=== PATIENT | male | born 1970 | race Caucasian/White ===

== ENCOUNTER 2021-10-15 09:40 | Day surgery (SDC) | payer BC ==
[2021-10-15] MEDS ORDERED: Lactated Ringers 1,000 ML IV SCH ×2 (10:45→15:45)
--- NOTE | 2021-10-15 10:50 | PCM.PREANE ---
Preanesthetic Assessment - Procedure Proposed Procedure: Colonoscopy and EGD - Anesthesia/Transfusion/Family Hx Anesthesia History: Prior Anesthesia Without Reaction Family History of Anesthesia Reaction: No Transfusion History: No Prior Transfusion(s) - Review of Systems General: No Symptoms Pulmonary: No Symptoms, Other (Quit smoking 1995) Cardiovascular: No Symptoms Gastrointestinal: No Symptoms, Other (GERD well controlled) Neurological: No Symptoms Other: Reports: None (ETOH History with no consumption since 1988) - Physical Assessment NPO Status Date: 10/15/21 NPO Status Time: 00:00 Vital Signs: Last Vital Signs Temp 36.2 C 10/15/21 10:22 Pulse 66 10/15/21 10:22 Resp 16 10/15/21 10:22 BP 136/77 10/15/21 10:22 Pulse Ox 98 10/15/21 10:22 Height: 1.78 m Weight: 92.986 kg ASA Class: 2 Mental Status: Alert & Oriented x3 Airway Class: Mallampati = 2 Dentition: Reports: Normal Dentition Thyro-Mental Finger Breadths: 3 Mouth Opening Finger Breadths: 2 (Potential difficult airway) ROM/Head Extension: Full Lungs: Clear to Auscultation, Normal Respiratory Effort Cardiovascular: Regular Rate, Regular Rhythm - Allergies Allergies/Adverse Reactions: Allergies Allergy/AdvReac Type Severity Reaction Status Date / Time No Known Allergies Allergy Verified 10/10/21 09:33 - Blood Blood Available: No Product(s) Available: None - Anesthesia Plan Pre-Op Medication Ordered: None - Acknowledgements Anesthesia Type Planned: General Anesthesia Pt an Appropriate Candidate for the Planned Anesthesia: Yes Alternatives and Risks of Anesthesia Discussed w Pt/Guardian: Yes Pt/Guardian Understands and Agrees with Anesthesia Plan: Yes PreAnesthesia Questionnaire Other HEENT History: wears glasses, has 2 dental implants Cardiovascular History: Reports: None Respiratory History: Reports: None Gastrointestinal History: Reports: Other (See Below) Other Gastrointestinal History: intermittent abd pain Genitourinary History: Reports: None Musculoskeletal History: Reports: None Neurological History: Reports: None Psychiatric History: Reports: Addiction Other Psychiatric History: alcohol free since 1988 Endocrine/Metabolic History: Reports: None Hematologic History: Reports: None Immunologic History: Reports: None Oncologic (Cancer) History: Reports: None Dermatologic History: Reports: Other (See Below) Other Dermatologic History: rash to left upper back - Past Surgical History Head Surgeries/Procedures: Reports: None HEENT Surgical History: Reports: None Cardiovascular Surgical History: Reports: None Respiratory Surgical History: Reports: None GI Surgical History: Reports: Colonoscopy Male Surgical History: Reports: Other (See Below) Other Male Surgeries/Procedures: repair of left testicular torsion Endocrine Surgical History: Reports: None Neurological Surgical History: Reports: None Musculoskeletal Surgical History: Other Musculoskeletal Surgeries/Procedures:: excision of lipoma to back in 1997, & abd in 2019 Oncologic Surgical History: Reports: None Dermatological Surgical History: Reports: None - SUBSTANCE USE Tobacco Use Status *Q: Former Tobacco User Tobacco Use Within Last Twelve Months: No - HOME MEDS Home Medications: Home Meds Cholecalciferol (Vitamin D3) [Vitamin D3] 1 tab PO DAILY 10/10/21 [History] Fish Oil/Alsey-3 Fatty Acids [Fish Oil 1,000 MG] 1 tab PO DAILY 10/10/21 [History] Glucosam/Chond/Collagen/Hyalur [Glucosamine Chondroitin] 1 tab PO DAILY 10/10/21 [History] - CURRENT (IN HOUSE) MEDS Current Meds: Current Medications Lactated Ringer's (Ringers, Lactated) 1,000 mls @ 125 mls/hr IV ASDIRECTED ROBERT
[2021-10-15] MEDS ORDERED: Ondansetron 4 MG/2 ML SDV IVPUSH ONE (10:52)
[2021-10-15] MEDS ORDERED: Glycopyrrolate 0.2 MG/ML SDV ONE (11:29)
[2021-10-15] MEDS ORDERED: Lidocaine 2% 5 ML SDV ONE (11:29)
[2021-10-15] MEDS ORDERED: Propofol 200 MG/20 ML SDV ONE (11:29)
[2021-10-15] MEDS ORDERED: Midazolam 1 MG/ML 2 ML SDV ONE (11:29)
--- NOTE | 2021-10-15 13:47 | PCM.OPNOTE ---
- General Post-Op/Procedure Note Operative Procedure(s): EGD with biopsies. Colonoscopy with polypectomy Findings: min/mild gastritis Colon polyp ascending colon, small dictation number [id number] Pre Op Diagnosis: Epigastric pain/bloating. Screening colonoscopy Post-Op Diagnosis: min/mild gastritis. Colon polyp ascending colon, small Anesthesia Technique: MAC Primary Surgeon: Daniel Lopez Complications: None Condition: Good
--- NOTE | 2021-10-15 13:48 | PCM.POSTAN ---
POST ANESTHESIA ASSESSMENT - MENTAL STATUS Mental Status: Alert, Oriented - VITAL SIGNS Vital Signs: Last Vital Signs Temp 97.2 F 10/15/21 10:22 Pulse 66 10/15/21 10:22 Resp 16 10/15/21 10:22 BP 136/77 10/15/21 10:22 Pulse Ox 98 10/15/21 10:22 - RESPIRATORY Respiratory Status: Respiratory Rate WNL, Airway Patent, O2 Saturation Stable - CARDIOVASCULAR CV Status: Pulse Rate WNL, Blood Pressure Stable - GASTROINTESTINAL GI Status: No Symptoms - POST OP HYDRATION Hydration Status: Adequate & Stable
--- NOTE | 2021-10-15 13:59 | PCM48HPAN ---
Post Anesthesia Note - EVALUATION WITHIN 48HRS OF ANESTHETIC Vital Signs in Normal Range: Yes Patient Participated in Evaluation: Yes Respiratory Function Stable: Yes Airway Patent: Yes Cardiovascular Function Stable: Yes Hydration Status Stable: Yes Pain Control Satisfactory: Yes Nausea and Vomiting Control Satisfactory: Yes Mental Status Recovered: Yes Vital Signs: Last Vital Signs Temp 99.3 F 10/15/21 13:45 Pulse 64 10/15/21 13:55 Resp 8 L 10/15/21 13:55 BP 106/62 10/15/21 13:55 Pulse Ox 96 10/15/21 13:55
--- NOTE | 2021-10-15 15:44 | OR ---
SURGEON: TIARRA STEWART MD DATE OF PROCEDURE: 10/15/2021 PREOPERATIVE DIAGNOSES: 1. Mild epigastric pain and bloating. 2. Screening colonoscopy. POSTOPERATIVE DIAGNOSES: 1. Mild gastritis. 2. Colon polyp. PROCEDURES PERFORMED: 1. Esophagogastroduodenoscopy with biopsy. 2. Colonoscopy with cold biopsy polypectomy. PRIMARY SURGEON: Tiarra Stewart MD ANESTHESIA: General. EXTENT OF THE COLONOSCOPY: To the cecum. EXTENT OF THE EGD: To the duodenum. BOWEL PREP: Very good. LIMITATIONS: None. REASON FOR PROCEDURE: Patient is a pleasant 51-year-old gentleman who last had a colonoscopy and EGD in 2007. He says his colonoscopy was normal, had some mild gastritis. Patient says for the last year, he has had intermittent epigastric and left abdominal discomfort that he describes as pressure and bloating feeling. He did start omeprazole. He says this has greatly improved his discomfort. PROCEDURE IN DETAIL: Physical examination was performed. The major risks and benefits associated with the procedure were explained to the patient in detail. The patient verbalized understanding and agreement of the same. The patient was then connected to the appropriate monitoring devices. EKG, pulse, pulse oximetry, blood pressure, and capnography were monitored throughout the entire procedure. Continuous oxygen and sedation were provided by the anesthesiologist. The patient was placed in left lateral decubitus position. Sedation was began. After adequate sedation was achieved, an upper endoscope was advanced under direct visualization without difficulty in the upper GI tract. The mucosa of the esophagus, GE junction, stomach, pylorus, and duodenum were inspected. Duodenum appeared normal. Scope was brought into the stomach. Both retro and antegrade views of the stomach were done. He had maybe some mild gastritis, more in the antrum area. Biopsies of the antrum and pylorus were done to check for H pylori. Scope was brought back to the stomach and some random biopsies of the body and the fundus of the stomach were done. Scope was brought up to the GE junction. GE junction was about 40 cm from incisors. The Z-line appeared intact. Scope was brought back into the stomach. Stomach was desufflated. Scope was brought through the esophagus. Esophagus appeared normal. Scope was completely removed and this part of the procedure terminated. Now, a rectal exam was done. No rectal masses or polyps were felt. Now, a well- lubricated Olympus colonoscope was inserted into the rectum and advanced under direct visualization to the level of the cecum. The cecum was identified by both visual and anatomic landmarks. Photographs were taken of the cecal cap. The terminal ileum was also viewed. Scope was then slowly withdrawn in a somewhat circular fashion looking at the color, texture, anatomy, and integrity of the mucosa from the cecum to the anal canal. The patient had some light liquid stool. This was suctioned and irrigated out for great look at the mucosa. Patient had a small almost hyperplastic looking polyp in the ascending colon just past the ileocecal valve. This was removed with cold biopsy polypectomy. There was good hemostasis. Scope was continued to be withdrawn. Again, no other polyps or lesions were seen. The scope was retroflexed in the rectum. Scope was then completely removed and the procedure was terminated. ENDOSCOPIC DIAGNOSES: 1. Some minimal to mild gastritis. 2. Small polyp in the ascending colon. RECOMMENDATIONS: Followup colonoscopy will depend on pathology, but most likely will need one in five years. Patient should follow up in the clinic to go over his EGD. TRENTON HASKINS /[id number]
== END 2021-10-15 14:30 | disposition home or self-care (01) ==
LOC: MW.SDS 09:40
PROVIDERS: ATTEND Surgery
DX: Z12.11 Encounter for screening for malignant neoplasm of colon (principal); D12.2 Benign neoplasm of ascending colon; K29.70 Gastritis, unspecified, without bleeding; R10.13 Epigastric pain; Z79.899 Other long term (current) drug therapy; R14.0 Abdominal distension (gaseous); Z98.890 Other specified postprocedural states; Z87.891 Personal history of nicotine dependence
CPT/HCPCS: 43239; 45380; J2250; J2704; J3490; J7120; 00813

== ENCOUNTER 2023-05-03 07:47 | Day surgery (SDC) | payer BC ==
[2023-05-03] MEDS ORDERED: Sodium Chloride 0.9% 10 ML Syringe FLUSH PRN (07:58)
[2023-05-03] MEDS ORDERED: Sodium Chloride 0.9% 1,000 ML IV ONE (07:58)
[2023-05-03] MEDS ORDERED: Ondansetron 4 MG/2 ML SDV IVPUSH ONE (07:58)
[2023-05-03] MEDS ORDERED: Sodium Chloride 0.9% 2.5 ML Syringe FLUSH PRN (07:58)
[2023-05-03] MEDS ORDERED: Morphine 4 MG/ML Syringe IM ONE (07:59)
[2023-05-03] MEDS ORDERED: Naloxone 0.4 MG/ML SDV IVPUSH PRN (07:59)
[2023-05-03] MEDS ORDERED: Morphine 2 MG/ML SYRINGE IVPUSH ONE (08:05)
[2023-05-03 08:39] LABS: BASOPHILS PERCENT AUTO 0.1 % (0.0-1.5); HEMATOCRIT 44.4 % (38.0-50.0); HEMOGLOBIN 15.8 g/dL (13.0-17.0); LYMPHOCYTES ABSOLUTE AUTO 1.9 K/uL (0.6-2.4); LYMPHOCYTES PERCENT AUTO 13.4 % (16.0-40.0); MEAN CORPUSCULAR HEMOGLOBIN 31.5 pg (27.0-32.0); MEAN CORPUSCULAR HGB CONC 35.6 g/dL (31.0-37.0); MEAN CORPUSCULAR VOLUME 88.4 fL (80.0-98.0); MONOCYTES ABSOLUTE AUTO 1.5 K/uL (0.0-0.8); MONOCYTES PERCENT AUTO 10.6 % (0.0-15.0); NEUTROPHILS ABSOLUTE AUTO 10.8 K/uL (1.4-5.7); NEUTROPHILS PERCENT AUTO 75.9 % (48.0-80.0); NRBC ABSOLUTE 0 K/uL; PLATELET COUNT,PLT 158 K/uL (150-400); RED BLOOD CELL COUNT 5.02 M/uL (4.50-5.90)
[2023-05-03 08:48] LABS: ALBUMIN 3.7 g/dL (3.4-5.0); BILIRUBIN TOTAL 1.8 mg/dL (0.2-1.0); CALCIUM 8.5 mg/dL (8.5-10.1); CARBON DIOXIDE,CO2 27.4 mmol/L (21.0-32.0); CREATININE 0.9 mg/dL (0.8-1.3); EST CRCL DRUG DOSING (CG) 102.26 mL/min; PROTEIN TOTAL,TP 7.4 g/dL (6.4-8.2)
[2023-05-03] MEDS ORDERED: Iopamidol 755 MG/ML 500 ML Multipack Bottle IVPUSH ONE (09:57)
[2023-05-03 10:03] LABS: APPEARANCE,URINE CLEAR; BILIRUBIN,URINE NEGATIVE (NEGATIVE); COLOR,URINE YELLOW; GLUCOSE,URINE NEGATIVE (NEGATIVE); KETONES,URINE NEGATIVE (NEGATIVE); LEUKOCYTE ESTERASE,URINE NEGATIVE (NEGATIVE); NITRITE,URINE NEGATIVE (NEGATIVE); OCCULT BLOOD,URINE NEGATIVE (NEGATIVE); PROTEIN,URINE NEGATIVE (NEGATIVE)
[2023-05-03] MEDS ORDERED: Piperacillin/Tazobactam 3.375 GM in Sodium Chloride 0.9% 100 ML IV ONE (10:06)
[2023-05-03] MEDS ORDERED: Sodium Chloride 0.9% 1,000 ML IV SCH (10:45)
[2023-05-03] MEDS ORDERED: Morphine 4 MG/ML Syringe IVPUSH ONE (11:37)
[2023-05-03] MEDS ORDERED: Morphine 2 MG/ML SYRINGE IVPUSH PRN (13:28)
[2023-05-03] MEDS ORDERED: Ondansetron 4 MG/2 ML SDV IVPUSH PRN (13:28)
[2023-05-03] MEDS ORDERED: Famotidine 20 MG/2 ML SDV IVPUSH ONE (14:33)
[2023-05-03] MEDS: Piperacillin/Tazobactam 3.375 GM in Sodium Chloride 0.9% 100 ML IV SCH ×2 (14:35→20:21)
[2023-05-03] MEDS: Sodium Chloride 0.9% 1,000 ML IV SCH (14:35)
[2023-05-03] MEDS: Acetaminophen 1,000 MG in Premix Bag 1 BAG IV PRN (15:07)
[2023-05-03] MEDS ORDERED: Bupivacaine 0.5% 30 ML SDV ONE (15:10)
[2023-05-03] MEDS ORDERED: Propofol 200 MG/20 ML SDV ONE (15:18)
[2023-05-03] MEDS ORDERED: Dexmedetomidine 200 MCG/2 ML SDV ONE (15:19)
[2023-05-03] MEDS ORDERED: fentaNYL 100 MCG/2 ML SDV ONE (15:19)
[2023-05-03] MEDS ORDERED: Rocuronium Bromide 50 MG/5 ML Syringe ONE (15:19)
[2023-05-03] MEDS ORDERED: Ropivacaine 0.5% 5 MG/ML 30 ML SDV ONE (15:25)
[2023-05-03] MEDS ORDERED: Dexamethasone 4 MG/ML 5 ML MDV ONE (16:29)
[2023-05-03] MEDS ORDERED: Ondansetron 4 MG/2 ML SDV ONE (16:29)
[2023-05-03] MEDS ORDERED: Ketorolac 30 MG/ML SDV ONE (17:25)
[2023-05-03] MEDS ORDERED: Sugammadex Sodium 200 MG/2 ML VIAL ONE (17:25)
[2023-05-03] MEDS ORDERED: Acetaminophen/oxyCODONE 325-5 MG Tab PO PRN (17:46)
[2023-05-04] MEDS: Piperacillin/Tazobactam 3.375 GM in Sodium Chloride 0.9% 100 ML IV SCH ×2 (02:10→07:41)
[2023-05-04] MEDS: Sodium Chloride 0.9% 1,000 ML IV SCH (02:11)
[2023-05-04] MEDS: Acetaminophen 1,000 MG in Premix Bag 1 BAG IV PRN (07:41)
== END 2023-05-04 09:09 | disposition home or self-care (01) ==
LOC: MW.ED 07:47 → MW.SDS 12:39 → MW.MS 12:40 → MW.SDS 13:10
PROVIDERS: ATTEND Surgery
DX: K35.32 Acute appendicitis with perforation, localized peritonitis, and gangrene, without abscess (principal); G89.29 Other chronic pain; M54.2 Cervicalgia; K21.9 Gastro-esophageal reflux disease without esophagitis; Z87.891 Personal history of nicotine dependence; Z79.899 Other long term (current) drug therapy
CPT/HCPCS: 36415; 44970; 64488; 74177; 80053; 81003; 83690; 85025; J0131; J1100; J1885; J2270; J2405; J2543; J2704; J2795; J3010; J3490; J7030; Q9967; 00840; 96361; 96365; 96366; 96367; 96375; 96376; 99284-25